=== PATIENT | male | born 1965 | race Caucasian/White ===

== ENCOUNTER 2023-04-05 03:54 | Inpatient (IN) ==
[2023-04-05] MEDS ORDERED: VANCOMYCIN HCL 1,500 MG in SODIUM CHLORIDE 0.9% 500 ML IV STA (04:16)
[2023-04-05] MEDS ORDERED: cefTRIAXone SODIUM 2,000 MG/50 ML BAG IV STA (04:16)
[2023-04-05] MEDS ORDERED: VANCOMYCIN CONSULT ACTIVE PRN ×2 (04:16→09:26)
--- NOTE | 2023-04-05 04:21 | Emergency Department Note ---
History of Present Illness General Chief complaint: Finger Pain Stated complaint: FINGER PAIN Time Seen by Provider: 04/05/23 04:09 History of Present Illness This 58-year-old gentleman who states he is healthy presents to the ER for left hand infection. He states 2 weeks ago he hit his finger cutting wood. Patient was at [facility] and was told to come to a bigger hospital for further evaluation and treatment. Patient occasionally smokes meth. No other drug use. No tobacco use. He states he is healthy with no active medical problems. He complains of pain and swelling to the left second finger and hand. The fingernail fell off the other day. Patient denies fever, chills, severe pain. Patient states he actually cannot really feel the finger much. Past Med/Surg History Social History Smoking Status: Current every day smoker Preferred Language: [place] Feels Safe at Home: Yes Review of Systems A total of 10 systems reviewed and were otherwise negative Physical Exam Vital Signs Vital Signs - 24 hr 04/05/23 03:58 04/05/23 05:30 Temperature 36.3 C L Temperature Source Temporal Artery Scan Pulse Rate 80 Pulse Rate [Finger] 64 Respiratory Rate 18 18 Respiratory Effort / Characteristics Non-Labored Respiratory Depth Normal Blood Pressure 116/47 L Blood Pressure [Right Arm] 120/77 Blood Pressure Mean 70 Blood Pressure Mean [Right Arm] 91 Pulse Oximetry 100 97 Oxygen Delivery Method Room Air Room Air Sepsis Recent Fever Within 48 Hours No Sepsis New/Unexplained Change in Mental Status No Sepsis Action Taken by Nursing No Action Required VITALS: Vitals are noted on the nurse's note and reviewed by myself. Vital signs stable. GENERAL: White male, in no acute distress, nondiaphoretic, well-developed well- nourished. SKIN: Left hand erythematous and edematous, left second finger with fingernail avulsed erythematous and edematous malodorous with purulent drainage from the fingertip, patient cannot bend the finger completely. I probed the wound and I easily probed to the bone and deeper in and the patient could not feel this. A wound culture was obtained. The rest of the skin was without rashes, erythema, edema, or bruising. There is no tenting of the skin. Capillary reflex less than 2 seconds. HEAD: Normocephalic atraumatic. EARS: External auditory canals clear, EYES: Pupils equal round and reactive to light and accommodation. Conjunctivae without injection, sclerae without icterus. Extraocular movements intact. NOSE: Patent, turbinates without inflammation or discharge. MOUTH: Mucous membranes moist. Pharynx without erythema or exudate. Uvula midline. Airway patent. Tongue does not deviate. NECK: Supple without nuchal rigidity. No lymphadenopathy. No thyromegaly. Cervical spine is nontender. No JVD. HEART: Regular rate and rhythm LUNGS: Clear to auscultation bilaterally without wheezes, rales or rhonchi. No retractions or accessory muscle use. ABDOMEN: Positive bowel sounds x 4. Normal tympanic percussion. Soft, nontender, without masses or organomegaly. Brown sign negative. No guarding or rebound tenderness. No CVA tenderness MUSCULOSKELETAL: No muscle atrophy, erythema, or edema noted. NEURO: Patient was alert and oriented to person place and time. Normal sensation to light and sharp touch. No focal neurological deficits. Course Administered Medications Vancomycin HCl 1,500 mg/ (Sodium Chloride) 530 mls @ 200 mls/hr IV NOW STA Stop: 04/05/23 06:54 Last Admin: 04/05/23 04:59 Dose: 200 mls/hr Documented By: LAUREN Discontinued Medications Sodium Chloride (Nss) 1,000 mls @ 999 mls/hr IV .Q1H1M PARK Stop: 04/05/23 05:30 Last Infusion: 04/05/23 05:46 Dose: Infused Documented By: Admin: 04/05/23 04:40 Dose: 999 mls/hr Documented By: Ceftriaxone Sodium (Rocephin) 2,000 mg in 50 mls @ 100 mls/hr IV NOW STA Stop: 04/05/23 04:45 Last Infusion: 04/05/23 05:46 Dose: Infused Documented By: Admin: 04/05/23 04:40 Dose: 100 mls/hr Documented By: Famotidine (Pepcid 20mg Iv Push) 20 mg in 5 mls @ 2.5 mls/min IV NOW STA Stop: 04/05/23 04:53 Last Admin: 04/05/23 04:59 Dose: 2.5 mls/min Documented By: Medical Decision Making Medical Records Attestation: I reviewed the patient's medical records. Home Medications Current Medication List: was personally reviewed by me Laboratory Data Attestation: I reviewed the patient's lab results. 04/05/23 05:19 04/05/23 04:25 Lab Results 04/05/23 04/05/23 04/05/23 Range/Units 04:25 04:32 05:19 WBC 7.80 (4.8-10.8) K/ul RBC 3.72 L (4.70-6.10) M/uL Hgb 11.2 L (14.0-18.0) g/dl Hct 33.7 L (42.0-52.0) % MCV 90.6 (80.0-100.0) fL MCH 30.1 (25.0-34.0) pg MCHC 33.2 (32.0-36.0) g/dL RDW Std Deviation 44.6 (36.4-46.3) fL RDW Coeff of Isabel 13.2 (11.5-14.5) % Plt Count 298 (130-400) K/uL MPV 8.9 L (9.4-12.4) fL Immature Gran % (Auto) 0.3 % Neut % (Auto) 77.1 % Lymph % (Auto) 13.3 % [place] % (Auto) 8.3 % Eos % (Auto) 0.6 % Baso % (Auto) 0.4 % Neut # (Auto) 6.01 (1.40-6.50) K/uL Lymph # (Auto) 1.04 L (1.20-3.40) K/uL [place] # (Auto) 0.65 H (0.11-0.59) K/uL Eos # (Auto) 0.05 (0.00-0.50) K/uL Baso # (Auto) 0.03 (0.00-0.20) K/uL Immature Gran # (Auto) 0.02 (0.01-0.20) K/uL ESR 47 H (0-20) mm/hr Sodium 139 (136-145) mmol/L Potassium 3.6 (3.5-5.1) mmol/L Chloride 107 (98-107) mmol/L Carbon Dioxide 25 (21-32) mmol/L Anion Gap 7 (3-11) BUN 14 (6-23) mg/dl Creatinine 0.91 (0.6-1.4) mg/dl Est Cr Clr Drug Dosing 81.7 ml/min Est GFR ( Amer) 106.5 ml/min Est GFR (Non-Af Amer) 91.9 ml/min BUN/Creatinine Ratio 15.4 (10-20) Glucose 120 H (70-99(Fasting)) mg/dl Lactate 1.7 (0.4-2.0) mmol/L Calcium 8.6 (8.6-10.3) mg/dl Magnesium 2.0 (1.7-2.4) mg/dl Total Bilirubin 0.4 (0.2-1.0) mg/dl Direct Bilirubin 0.1 (0-0.2) mg/dl AST 17 (13-39) U/L ALT 18 (7-52) U/L Alkaline Phosphatase 92 (34-104) U/L Total Creatine Kinase 126 (30-223) U/L Troponin I High Sens 5.2 (0-20) pg/ml C-Reactive Protein 9.01 H (0-0.5) mg/dl Total Protein 7.1 (6.0-8.3) gm/dl Albumin 3.3 L (3.4-5.0) gm/dl Procalcitonin < 0.05 (0-0.5) ng/ml Imaging Data Attestation: I personally reviewed and interpreted this imaging study as follows: MDM Narrative Prior records reviewed and summarized as above. Triage Nursing notes reviewed. Additional history obtained from nursing. The patient's history was concerning for swelling and redness of the skin. Differential diagnosis: Etiologies such as osteomyelitis, NF, cellulitis, abscess, MRSA infection, DVT, necrotizing fasciitis, dermatitis, drug eruption, as well as others were entertained.. Physical examination: The physical examination was consistent with concerns of osteomyelitis to the left second finger ER treatment provided: Rocephin, vancomycin, IV fluids were ordered Tetanus was given at [facility] before coming here Wound culture was taken and sent to lab by myself On reassessment the patient felt better. Diagnostics interpreted by me: EKG ordered for heartburn EKG: Normal sinus, normal intervals, no acute ST-T wave changes. Impression normal sinus rhythm independently interpreted by myself I think arrhythmia is unlikely. EKG shows normal sinus rhythm with no interval abnormalities such as QT prolongation or WPW. There are no findings to suggest Brugada syndrome. Cardiac monitoring in the emergency department reveals no tachycardic or bradycardic dysrhythmia. Hypertrophic cardiomyopathy was considered but there are no clear historical elements pointing toward this. EKG is not suggestive. The QRS voltage is not extremely large and there are no suggestive Q waves. The labs Independently Interpreted by myself revealed elevated inflammatory markers, negative lactic. Mild hyperglycemia without DKA Blood cultures pending, wound culture pending Imaging studies: Hand x-ray with soft tissue swelling with concerns of osteomyelitis and possible fracture to the third finger per my independent interpretation Consultation: A consultation was placed with the hospitalist. The case was discussed and diagnostics were reviewed. The patient was evaluated in the ER for further treatment. Exam and history are concerning for possible osteomyelitis of the left second finger. Patient also had concerns for tendon infection of the finger as he cannot bend the finger. It was quite erythematous and edematous with purulent drainage from the finger and malodorous. Patient could not feel me probed the wound. He was started on broad-spectrum antibiotics as above. He was given a tetanus shot. Medicine consulted the case is discussed. He will be admitted to the medical service for further evaluation and treatment. By the evaluation outlined above emergent etiologies such as abscess, DVT, as well as others were deemed relatively unlikely. The pt informed about the findings as listed above. All questions were answered and pleased with the treatment. The chart was completed utilizing The [employer] Speech voice recognition software. Grammatical errors, random word insertions, pronoun errors, and incomplete sentences are an occassional consequence of this system due to software limitations, ambient noise, and hardware issues. Any formal questions or concerns about the content, text, or information contained within the body of this dictation should be directly addressed to the physician foundation assistant for clarification. Impression & Plan Finger osteomyelitis, left Discharge Plan Visit Data Chief Complaint: Finger Pain Stated Complaint: FINGER PAIN ED Provider: [facility] Midlevel Provider: Kristal Palmoo Discharge Problem: Finger osteomyelitis, left Patient Disposition: Admitted As Inpatient Condition: Good Forms Stand Alone Forms: [facility] [email or web address] Referrals Referrals: PCP,NO [Primary Care Provider] -
[2023-04-05] MEDS ORDERED: SODIUM CHLORIDE 0.9% 1,000 ML IV SCH (04:30)
[2023-04-05] MEDS ORDERED: FAMOTIDINE 20MG IV PUSH 20 MG/5 ML SYR IV STA (04:52)
[2023-04-05 05:34] LABS: Basophils # (auto) 0.03 K/uL (0.00-0.20); Basophils % (auto) 0.4 %; Eosinophils # (auto) 0.05 K/uL (0.00-0.50); Eosinophils % (auto) 0.6 %; Hematocrit (blood only) 33.7 % (42.0-52.0); Hemoglobin 11.2 g/dl (14.0-18.0); Immature Granulocytes # (auto) 0.02 K/uL (0.01-0.20); Immature Granulocytes % (auto) 0.3 %; Lymphocytes # (auto) 1.04 K/uL (1.20-3.40); Lymphocytes % (auto) 13.3 %; Mean Corpuscular Hemoglobin 30.1 pg (25.0-34.0); Mean Corpuscular Hgb Conc 33.2 g/dL (32.0-36.0); Mean Corpuscular Volume 90.6 fL (80.0-100.0); Mean Platelet Volume 8.9 fL (9.4-12.4); Monocytes # (auto) 0.65 K/uL (0.11-0.59); Monocytes % (auto) 8.3 %; Neutrophils # (auto) 6.01 K/uL (1.40-6.50); Neutrophils % (auto) 77.1 %; Platelet Count 298 K/uL (130-400); RDW Coefficient of Variation 13.2 % (11.5-14.5); RDW Standard Deviation 44.6 fL (36.4-46.3); Red Blood Count 3.72 M/uL (4.70-6.10)
[2023-04-05 05:43] LABS: Albumin Level 3.3 gm/dl (3.4-5.0); BUN Creatinine Ratio 15.4 (10-20); Bilirubin Direct 0.1 mg/dl (0-0.2); Bilirubin,Total 0.4 mg/dl (0.2-1.0); C Reactive Protein 9.01 mg/dl (0-0.5); Calcium 8.6 mg/dl (8.6-10.3); Creatinine Clr Calc Pharmacy 81.7 ml/min; Est GFR (African American) 106.5 ml/min; Est GFR (Non-African American) 91.9 ml/min; Potassium 3.6 mmol/L (3.5-5.1); Total Protein 7.1 gm/dl (6.0-8.3)
[2023-04-05 05:48] LABS: Troponin I High Sensitivity 5.2 pg/ml (0-20)
--- NOTE | 2023-04-05 06:12 | History & Physical Report ---
Date of Service April 05, 2023 Assessment & Plan (1) Finger osteomyelitis, left: Plan: 58yo male s/p injury of left index finger 2 weeks ago with progressive swelling and purulent drainage. Likely osteomyelitis. Elevated ESR=47, CRP=9.01. Afebrile, HD stable. Does not appear to be systemically ill -Admit to medical -Follow wound culture -Continue antibiotic coverage with Vancomycin and Ceftriaxone -Ortho consultation appreciated -Check HgbA1C -Will keep patient NPO for now in event of possible surgical procedure. Last PO intake 04/05/23 at 02:00 (2) Indigestion: Plan: Patient reports indigestion -Pepcid 40mg po daily -Maalox PRN History of Present Illness Chief Complaint: left finger osteomyelitis Primary Care Provider: NO PCP Juventino Faust is a 58yo male presenting with infection of left index finger. Patient was splitting wood 2 weeks ago and smashed his finger when he was loading up the wood onto a truck. He also got some small thorns in his hand as well. After the initial injury, his nail turned black and fell off. He has had progressive redness, swelling and pain of the left index finger and hand over the last two weeks. Three days ago patient opened the swelling with a razor blade and reported a copious amount of pus that came out. He was seen at [place] [facility] and administered a tetanus shot and instructed to come to [facility]. He denies chest pain, cough, SOB. He reports a low grade subjective fever last night. Also with indigestion tonight. Otherwise, no complaints. In the ER he is afebrile, HD stable. Wound was explored by an ER staff with a sterile q-tip. Probed to exposed bone. Copious amounts of pus expressed and sent for culture. ER Course: Famotidine Vancomycin Ceftriaxone NSS Allergies Allergy/AdvReac Type Severity Reaction Status Date / Time No Known Drug Allergies Allergy Mild Verified 04/05/23 06:30 Past Med/Surg History Medical History (Updated 04/05/23 @ 06:35 by Miryam Bosch DO) No significant past medical history Surgical History (Updated 04/05/23 @ 06:31 by Miryam Bosch DO) History of hand surgery Family History (Updated 04/05/23 @ 06:31 by Miryam Bosch DO) Other Family history non-contributory Social History Smoking Status: Current every day smoker Preferred Language: Luxembourgish Feels Safe at Home: Yes Review of Systems Review of Systems: General: Patient denies fevers, chills, malaise, weight loss or weight gain Skin: Patient denies bruising, bleeding or rash HEENT: Patient denies headache, visual changes, sore throat, difficulty swallowing, stiff neck Cardio: Patient denies chest pain, palpitations, shortness of breath, lightheadedness Pulmonary: Patient denies cough, wheeze GI: Patient denies abdominal pain, nausea, vomiting, diarrhea, constipation : Patient denies dysuria, frequency, urgency or hematuria Musculoskeletal: Patient denies swelling or pain of the joints, edema Neuro: Patient denies numbness, tingling, weakness or falls Psych: Patient denies depression, anxiety Physical Exam Physical Exam: General: patient resting comfortably, NAD, non-toxic in appearance, AA&O x 4 HEENT: NC/AT, PERRL, EOMI, anicteric sclera, conjunctiva without injection, external ear normal to inspection and nontender, nares patent, moist mucus membranes, poor dentition, no oropharyngeal lesions, neck supple, trachea midline, no LAD, no thyromegaly, no JVD Heart: +S1/S2, regular, no m/r/g Lungs: equal air entry bilaterally, no rales/rhonchi/wheezes Abd: +BS, soft, NT/ND, no masses/organomegaly/ascites, some epigastric tenderness Ext: arthritic changes in bilateral hands. Left hand index finger with necroti c tip, appears to have exposed bone, purulent drainage, redness of finger, swelling of hand. Left middle finger s/p surgical reattachment held in partial flexion with skin cracking at PIP skin, small lesions on left hand reportedly from thorns Neuro: nonfocal, patient AA&O x 4, speech intact, no facial droop, moving all extremities on command with equal strength 5/5 Results & Data Results & Data Vital Signs (Past 12 Hours) Vital Signs Temp Pulse Pulse Resp BP BP Pulse Ox 04/05/23 05:30 64 18 120/77 97 04/05/23 03:58 36.3 C L 80 18 116/47 L 100 O2 Del Method 04/05/23 05:30 Room Air 04/05/23 03:58 Room Air Laboratory Results Laboratory Results WBC 7.80 K/ul (4.8-10.8) 04/05/23 05:19 RBC 3.72 M/uL (4.70-6.10) L 04/05/23 05:19 Hgb 11.2 g/dl (14.0-18.0) L 04/05/23 05:19 Hct 33.7 % (42.0-52.0) L 04/05/23 05:19 MCV 90.6 fL (80.0-100.0) 04/05/23 05:19 MCH 30.1 pg (25.0-34.0) 04/05/23 05:19 MCHC 33.2 g/dL (32.0-36.0) 04/05/23 05:19 RDW Std Deviation 44.6 fL (36.4-46.3) 04/05/23 05:19 RDW Coeff of Isabel 13.2 % (11.5-14.5) 04/05/23 05:19 Plt Count 298 K/uL (130-400) 04/05/23 05:19 MPV 8.9 fL (9.4-12.4) L 04/05/23 05:19 Immature Gran % (Auto) 0.3 % 04/05/23 05:19 Neut % (Auto) 77.1 % 04/05/23 05:19 Lymph % (Auto) 13.3 % 04/05/23 05:19 [place] % (Auto) 8.3 % 04/05/23 05:19 Eos % (Auto) 0.6 % 04/05/23 05:19 Baso % (Auto) 0.4 % 04/05/23 05:19 Neut # (Auto) 6.01 K/uL (1.40-6.50) 04/05/23 05:19 Lymph # (Auto) 1.04 K/uL (1.20-3.40) L 04/05/23 05:19 [place] # (Auto) 0.65 K/uL (0.11-0.59) H 04/05/23 05:19 Eos # (Auto) 0.05 K/uL (0.00-0.50) 04/05/23 05:19 Baso # (Auto) 0.03 K/uL (0.00-0.20) 04/05/23 05:19 Immature Gran # (Auto) 0.02 K/uL (0.01-0.20) 04/05/23 05:19 ESR 47 mm/hr (0-20) H 04/05/23 05:19 Sodium 139 mmol/L (136-145) 04/05/23 04:25 Potassium 3.6 mmol/L (3.5-5.1) 04/05/23 04:25 Chloride 107 mmol/L (98-107) 04/05/23 04:25 Carbon Dioxide 25 mmol/L (21-32) 04/05/23 04:25 Anion Gap 7 (3-11) 04/05/23 04:25 BUN 14 mg/dl (6-23) 04/05/23 04:25 Creatinine 0.91 mg/dl (0.6-1.4) 04/05/23 04:25 Est Cr Clr Drug Dosing 81.7 ml/min 04/05/23 04:25 Est GFR ( Amer) 106.5 ml/min 04/05/23 04:25 Est GFR (Non-Af Amer) 91.9 ml/min 04/05/23 04:25 BUN/Creatinine Ratio 15.4 (10-20) 04/05/23 04:25 Glucose 120 mg/dl (70-99(Fasting)) H 04/05/23 04:25 Lactate 1.7 mmol/L (0.4-2.0) 04/05/23 04:32 Calcium 8.6 mg/dl (8.6-10.3) 04/05/23 04:25 Magnesium 2.0 mg/dl (1.7-2.4) 04/05/23 04:25 Total Bilirubin 0.4 mg/dl (0.2-1.0) 04/05/23 04:25 Direct Bilirubin 0.1 mg/dl (0-0.2) 04/05/23 04:25 AST 17 U/L (13-39) 04/05/23 04:25 ALT 18 U/L (7-52) 04/05/23 04:25 Alkaline Phosphatase 92 U/L (34-104) 04/05/23 04:25 Total Creatine Kinase 126 U/L (30-223) 04/05/23 04:25 Troponin I High Sens 5.2 pg/ml (0-20) 04/05/23 04:25 C-Reactive Protein 9.01 mg/dl (0-0.5) H 04/05/23 04:25 Total Protein 7.1 gm/dl (6.0-8.3) 04/05/23 04:25 Albumin 3.3 gm/dl (3.4-5.0) L 04/05/23 04:25 Procalcitonin < 0.05 ng/ml (0-0.5) 04/05/23 04:25 PG Care Time/CCT Total # of Minutes Spent Total Time Spent with Patient: Total time spent is greater than 50% in coordination of care (as documented) at patient's floor/unit and/or counseling patient: Coding Level of Care Code 68181 INT INP/OBS CARE 2/55MIN Diagnoses Finger osteomyelitis, left M86.9 Indigestion K30
[2023-04-05] MEDS ORDERED: ONDANSETRON INJ 2 MG/ML 2 ML VIAL IV PRN ×2 (09:26→11:56)
[2023-04-05] MEDS ORDERED: ALUMINUM/MAGNESIUM SUSP 30 ML UDC PO PRN (09:26)
--- NOTE | 2023-04-05 09:26 | XRay Report ---
XR hand LT min 3V routine CLINICAL HISTORY: ? OM left 2nd finger TECHNIQUE: 3 views of the left hand were obtained. Comparison: None available at the time of this dictation. FINDINGS: There are mild erosions at the tuft of the left second digit distal phalanx. Degenerative changes are seen in the joints. Soft tissue swelling and ulceration noted. IMPRESSION: Findings are compatible with osteomyelitis of the second digit distal phalanx tuft with soft tissue s welling and ulcer formation. ACT 112: Negative or not required by law. Electronically signed by: Carlos Snow M.D. 04/05/2023 9:24 AM
[2023-04-05 10:42] LABS: Estimated Average Glucose 126 mg/dl
--- NOTE | 2023-04-05 10:43 | Anesthesiology Consultation ---
Date of Service April 05, 2023 Assessment & Plan Chart Review Chart Review: Acceptable Risk for Surgery and Patient NOT seen in Pre Admission Testing Consults Requested none ASA [id number] Proposed Anesthesia Anesthesia Type: MAC History Height/Weight Height: 5 ft 7 in Weight: 73.2 kg Allergies Allergy/AdvReac Type Severity Reaction Status Date / Time No Known Drug Allergies Allergy Mild Verified 04/05/23 06:30 Medications Home Medications Medication Instructions Recorded Confirmed Last Taken No Known Home Medications 04/05/23 04/05/23 Unknown Past Medical History Medical History No significant past medical history Hx/o methamphetamine use/smoking + cigarette smoking anemia Exercise / Class Metabolic Activity II 4-5 Yardwork/Stairs/Walk up hill Past Family History Family History Other Family history non-contributory Past Surgical History Surgical History History of hand surgery Past Anesthesia History No Hx of Anesthesia Complications and No Family Hx of Anesthesia Complications History of PONV No Hx of PONV and No Hx of Motion Sickness Social History Smoking Status: Current every day smoker Do You Dip or Chew Tobacco: Yes (one cane per week) Hx Alcohol Use: No Alcohol Intake Frequency Comment: per patient quit 2 1/2 years ago Hx Substance Use: Yes substance use type: methamphetamine Last Used Substance: Just Prior to Arrival Last Used Substance Other:: last use last night 04/04/23- uses x1 month Physical Exam Vital Signs Last Vital Signs Temp 36.5 C 04/05/23 09:31 Pulse 63 04/05/23 09:31 Resp 16 04/05/23 09:31 BP 134/92 04/05/23 09:31 Pulse Ox 98 04/05/23 09:31 O2 Del Method Room Air 04/05/23 09:31 Testing Laboratory Results 04/05/23 05:19 04/05/23 04:25 04/05/23 04:20 Gram Stain - Final Finger Electrocardiogram Date: 04/05/23 Findings: + NSR @ (SR @ 63 w/ PAC's)
--- NOTE | 2023-04-05 10:53 | Orthopedic Consultation ---
Date of Consultation April 05, 2023 Assessment & Plan (1) Finger osteomyelitis, left: Plan I discussed treatment options with the patient. I feel the finger is not likely salvageable and he has infection which is beginning to track up the extremity. We discussed surgical treatment options. He like to proceed with: 1 left index finger amputation, likely at middle phalanx level 2 irrigation debridement He understands loss of function, failure to improve, persistent infection, stiffness etc. Risk and benefits have been discussed as well as alternative treatment options. We will plan for surgical treatment under digital block and sedation today. History of Present Illness Reason for Consultation: left index finger infection Attending Physician: Miryam Bosch DO History of Present Illness this is a gentleman who sustained a crushing injury to his finger about 2 weeks ago he notes progressive pain and swelling in the finger with subsequent infection. He is admitted last night to the hospitalist service with concern for finger infection and osteomyelitis. Allergies Allergy/AdvReac Type Severity Reaction Status Date / Time No Known Drug Allergies Allergy Mild Verified 04/05/23 06:30 Home Medications Medication Instructions Recorded Confirmed Type No Known Home Medications 04/05/23 04/05/23 History Patient History Medical History No significant past medical history Surgical History History of hand surgery Family History Other Family history non-contributory Social History Smoking Status: Current every day smoker Tobacco Type: Smokeless Tobacco (Dip or Chew) Do You Dip or Chew Tobacco: Yes (one cane per week); Hx Alcohol Use: No Hx Substance Use: Yes Last Used Substance: Just Prior to Arrival Last Used Substance Other:: last use last night 04/04/23- uses x1 month Preferred Language: British Communication Ability: Effective Pot Operator Required: No Beliefs That Will Affect Care: None Current Living Situation: Alone Feels Safe at Home: Yes Safety Concerns: Feels Safe At This Time Assistive Devices: Glasses Assistive Devices Comment: reading glasses Physical Exam Musculoskeletal: Left index finger examination does show significant fusiform swelling of the finger. He has evidence of exposed bone of the tip of the finger with loss of soft tissues. He has redness in the finger up to the level of the PIP joint. No streaking erythema. Results & Data Vital Signs (Past 12 Hours) Vital Signs Temp Pulse Pulse Resp BP BP Pulse Ox 04/05/23 09:31 36.5 C 63 16 134/92 98 04/05/23 07:00 65 18 134/89 98 04/05/23 05:30 64 18 120/77 97 04/05/23 03:58 36.3 C L 80 18 116/47 L 100 O2 Del Method 04/05/23 09:31 Room Air 04/05/23 07:00 Room Air 04/05/23 05:30 Room Air 04/05/23 03:58 Room Air Diagnostic Findings I independently reviewed 3 views of the left index finger does show osteomyelitis of the tip of the finger with a dysmorphic looking distal phalanx and erosions at the tip
[2023-04-05] MEDS: FAMOTIDINE 40 MG TABLET PO SCH (10:54)
--- NOTE | 2023-04-05 11:20 | Pharmacy Report ---
Pharmacy PK ABX Note - Date of Service April 05, 2023 - Assessment and Plan Assessment 58 year old M receiving vancomycin and ceftriaxone for treatment of left finger osteomyelitis. Blood cultures pending, surface finger culture pending. Renal function stable. Plan for OR today. Day # 1 of antimicrobial therapy. Plan Vancomycin * Loading dose: 1500 mg IV x 1 * Maintenance dose: 1000 mg IV every 12 hours * Regimen is predicted to achieve target AUC/GILLES of 400-600 mg/L.hr * Will obtain level around steady state if vancomycin continued. Pharmacy will continue to follow and will adjust dose/frequency as necessary. Thank you. Pharmacy has transitioned to AUC monitoring for vancomycin. AUC/GILLES is the preferred PK/PD target and is associated with decreased risk of nephrotoxicity compared to traditional trough targets.
[2023-04-05] MEDS ORDERED: MIDAZOLAM HCL 1 MG/ML 2ML VIAL ONE (11:37)
[2023-04-05] MEDS ORDERED: PROPOFOL IV EMULSION 10 MG/ML 20 ML VIAL IV ONE (11:37)
[2023-04-05] MEDS ORDERED: LIDOCAINE 2% 2 ML VIAL/AMP(20MG/ML) INFIL ONE (11:37)
[2023-04-05] MEDS ORDERED: fentaNYL citrate PF 100 MCG/2 ML VIAL ONE (11:37)
[2023-04-05] MEDS ORDERED: LIDOCAINE 1% LOCAL 20 ML VIAL ONE (11:55)
[2023-04-05] MEDS ORDERED: BUPIVACAINE 0.5 % 5 MG/1 ML MPF 30ML VIAL ONE (11:55)
[2023-04-05] MEDS ORDERED: NALOXONE HCL 0.4 MG/1 ML VIAL/CARP IV PRN (11:56)
[2023-04-05] MEDS ORDERED: PROMETHAZINE HCL 12.5 MG in SODIUM CHLORIDE 0.9% 50 ML IV PRN (11:56)
[2023-04-05] MEDS ORDERED: HYDROmorphone INJ 1 MG/ML SYRINGE IV PRN (11:56)
[2023-04-05] MEDS ORDERED: fentaNYL citrate PF 100 MCG/2 ML VIAL IV PRN (11:56)
[2023-04-05] MEDS ORDERED: ATROPINE SULFATE 0.1 MG/ML 10ML SYR IV PRN (11:56)
[2023-04-05] MEDS ORDERED: ePHEDrine sulfate 50 MG/ML AMP IV PRN (11:56)
[2023-04-05] MEDS ORDERED: LABETALOL HCL IV 5 MG/ML 20ML IV PRN (11:56)
[2023-04-05] MEDS ORDERED: FLUMAZENIL 0.1 MG/1 ML 10 ML VIAL IV PRN (11:56)
--- NOTE | 2023-04-05 11:56 | Communication Note ---
Date of Service: April 05, 2023 Patient smoked methamphetamine @ 0100am today
[2023-04-05] MEDS ORDERED: ceFAZolin 330 MG/ML 1 GM VIAL ONE ×2 (12:27)
[2023-04-05] MEDS ORDERED: ceFAZolin 2000MG 2,000 MG/15 ML SYR IV ONE (12:29)
[2023-04-05 12:40] LABS: Amphetamines+Metham, Urine Pos (Neg); Barbiturates, Urine Neg (Neg); Benzodiazepine, Urine Neg (Neg); Cocaine, Urine Neg (Neg); MDMA (Ecstacy), Urine Pos (Neg); Methadone, Urine Neg (Neg); Opiate, Urine Neg (Neg); Phencyclidine, Urine Neg (Neg)
--- NOTE | 2023-04-05 12:40 | Post Operative Brief Note ---
Immediate Post Op Note v1 Date of Surgery April 05, 2023 Pre & Post Diagnosis Operation Date: 04/05/23 11:30 Pre-Op Diagnosis: Left Index Finger Osteomyelitis Post-Op Diagnosis: Left Index Finger Osteomyelitis I identified the patient and participated in the time-out.: Yes Procedure Operation Date: 04/05/23 11:30 Actual Procedures p Left Index Finger Amputation(Left) - Trav Rivera MD Left index finger I&D Surgeon Trav Rivera MD Theatre Instructor None Estimated Blood Loss 10 Findings Consistent with Post-Op Diagnosis Gross infection and osteomyelitis
[2023-04-05] MEDS ORDERED: ONDANSETRON INJ 2 MG/ML 2 ML VIAL ONE (12:41)
--- NOTE | 2023-04-05 12:49 | Operative Report ---
Post Operative Report Pre & Post Diagnosis Operation Date: 04/05/23 11:30 Pre-Op Diagnosis: Left Index Finger Osteomyelitis Post-Op Diagnosis: Left Index Finger Osteomyelitis I identified the patient and participated in the time-out.: Yes Procedure Operation Date: 04/05/23 11:30 Actual Procedures p Left Index Finger Amputation(Left) - Trav Rivera MD Left index finger irrigation and debridement of infection Surgeon Trav Rivera MD Display Department Manager None Estimated Blood Loss 10 Findings Consistent with Post-Op Diagnosis Gross osteomyelitis of the tip of the finger and infection extending proximally to the level of the PIP joint. Specimens Cultures Anesthesia Type MAC Indications This is a gentleman with progressive infection of the tip of the finger he presents with loss of sensation as well which is concerning either for unrecognized diabetes or unrecognized carpal tunnel syndrome. He presents for amputation with irrigation and debridement. Description of Procedure I injected mixture of lidocaine and Marcaine at the base of the finger for a digital block. Hand was prepped and draped in the standard fashion I made an elliptical fishmouth incision over the region of the middle phalanx. Dissection was carried down through the skin and subcutaneous tissue. There is gross infection and the tip of the finger was not viable with gross osteomyelitis. I disarticulated the finger at the PIP joint as I did not feel that it was viable distal to that. There was infection tracking up the flexor tendon sheath. I transected the flexor tendons proximally at the limited visualization. I then performed traction neurectomies. I debrided the area of skin subcutaneous tissue fascia and bone and the area was copiously irrigated with 1 L of normal saline for infection. This did leave the residual stump fairly clean. Finger tourniquet was removed and hemostasis was obtained with bipolar electrocautery. Skin was loosely closed with 3-0 nylon in a simple fashion. Patient was placed in a soft dressing and sent to the PACU in stable condition postoperative plan will be continue antibiotics as per hospitalist and monitor culture results. I attest to the content of the Intraoperative Record and any orders documented therein. Any exceptions are noted below.
--- NOTE | 2023-04-05 13:31 | Anesthesiology Progress Note ---
Date of Service April 05, 2023 Anesthesia Post Procedure Vital Signs Vital Signs: Temp Pulse Pulse Pulse Resp BP BP 04/05/23 13:05 56 L 12 103/74 04/05/23 12:55 55 L 14 117/77 04/05/23 12:45 36.5 C 59 L 17 104/74 04/05/23 09:31 36.5 C 63 16 134/92 04/05/23 07:00 65 18 134/89 04/05/23 05:30 64 18 120/77 04/05/23 03:58 36.3 C L 80 18 116/47 L Pulse Ox O2 Del Method O2 Flow Rate 04/05/23 13:05 100 Oxymask 2 04/05/23 12:55 100 Oxymask 4 04/05/23 12:45 100 Oxymask 6 04/05/23 09:31 98 Room Air 04/05/23 07:00 98 Room Air 04/05/23 05:30 97 Room Air 04/05/23 03:58 100 Room Air Transfer of Care Handoff Completed per policy Notes Mental Status: alert / awake / arousable Patient Amnestic to Procedure: Yes Nausea / Vomiting: adequately controlled Pain: adequately controlled Airway Patency, RR, SpO2: stable & adequate BP & HR: stable & adequate Hydration State: stable & adequate Anesthetic Complications: no major complications apparent
[2023-04-05] MEDS: VANCOMYCIN HCL 1,000 MG in SODIUM CHLORIDE 0.9% 250 ML IV SCH (14:19)
[2023-04-05] MEDS ORDERED: VANCOMYCIN HCL 1,000 MG in SODIUM CHLORIDE 0.9% 250 ML IV SCH (16:00)
[2023-04-05] MEDS ORDERED: oxyCODONE HCL IR 5 MG TAB (IMMEDIATE RELEASE) PO PRN (18:08)
[2023-04-05] MEDS: ACETAMINOPHEN 325 MG TAB PO SCH (20:37)
[2023-04-06] MEDS: VANCOMYCIN HCL 1,000 MG in SODIUM CHLORIDE 0.9% 250 ML IV SCH ×2 (01:38→13:49)
[2023-04-06] MEDS: cefTRIAXone SODIUM 2,000 MG in DEXTROSE 5 % MINI-B 50 ML IV SCH (05:10)
[2023-04-06 06:22] LABS: Hematocrit (blood only) 37.8 % (42.0-52.0); Hemoglobin 12.8 g/dl (14.0-18.0); Mean Corpuscular Hemoglobin 30.3 pg (25.0-34.0); Mean Corpuscular Hgb Conc 33.9 g/dL (32.0-36.0); Mean Corpuscular Volume 89.6 fL (80.0-100.0); Mean Platelet Volume 8.9 fL (9.4-12.4); Platelet Count 325 K/uL (130-400); RDW Coefficient of Variation 13.1 % (11.5-14.5); RDW Standard Deviation 42.9 fL (36.4-46.3); Red Blood Count 4.22 M/uL (4.70-6.10); White Blood Count 6.09 K/ul (4.8-10.8)
[2023-04-06 06:57] LABS: Calcium 8.4 mg/dl (8.6-10.3); Creatinine Clr Calc Pharmacy 90.7 ml/min; Est GFR (African American) 112.2 ml/min; Est GFR (Non-African American) 96.8 ml/min; Potassium 3.9 mmol/L (3.5-5.1)
[2023-04-06] MEDS: FAMOTIDINE 40 MG TABLET PO SCH (08:28)
[2023-04-06] MEDS: DOCUSATE SODIUM/SENNA 50/8.6MG TAB PO SCH (08:28)
[2023-04-06] MEDS: ACETAMINOPHEN 325 MG TAB PO SCH ×4 (08:28→20:33)
--- NOTE | 2023-04-06 09:04 | Orthopedic Progress Note ---
Date of Service April 06, 2023 Assessment & Plan (1) Finger osteomyelitis, left: Plan: Postop day 1 left index finger I&D and amputation At this point in time he does exhibit clinical improvement. I do not anticipate any further surgical intervention. Recommend antibiotics as per hospitalist. Cultures were taken yesterday which do show gram-positive cocci and gram- negative bacilli. Orthopedics will sign off. Should follow-up with my physician intellectual property legal assistant, Adri Marlow or Luis Simons 10 to 14 days from surgical treatment at [facility] office. May continue dry sterile dressing changes once a day Admission and Anticipated Discharge Date Admission Date: April 05, 2023 Subjective Patient is feeling well, no new complaints Physical Exam Musculoskeletal: Left index finger exam: He has well-healing incision. He has mild swelling and erythema around the incision. Infection looks clinically improving Results & Data Vital Signs (Past 12 Hours) Vital Signs Temp Pulse Resp BP Pulse Ox O2 Del Method 04/06/23 07:41 36.4 C L 63 18 132/90 98 Room Air 04/06/23 03:22 36.7 C 63 16 120/75 97 Room Air 04/05/23 23:00 36.9 C 61 18 111/64 97 Room Air
--- NOTE | 2023-04-06 16:31 | Hospitalist Progress Note ---
Date of Service April 06, 2023 Assessment & Plan (1) Finger osteomyelitis, left: Plan: 58yo male s/p injury of left index finger 2 weeks ago with progressive swelling and purulent drainage. With osteomyelitis. Elevated ESR=47, CRP=9.01. Now s/p left index finger amputation to PIP joint by Dr. Rivera on 04/05. Noted to have ascending tenosynovitis as well Wound culture growing Staph and Strep species, final ID and sens pending No fevers, doing well -Continue antibiotic coverage with Vancomycin and Ceftriaxone -f/u final wound cultures and hopefully can have po abx on discharge -daily dry, sterile dressing changes -f/u with Ortho in clinic in 10-14 days (2) Indigestion: Plan: Patient reports indigestion -Pepcid 40mg po daily -Maalox PRN (3) Methamphetamine abuse: Plan: counseled on cessation (4) Prediabetes: Plan: HgbA1C here is elevated at 6.0% no need for treatment with medication at this time needs PCP follow up, dietary changes Plan Dispo-continued stay, hopeful for dc to home tomorrow if cultures finalized Admission and Anticipated Discharge Date Admission Date: April 05, 2023 Subjective Pt reports feeling well. No CP, SOB, nausea. He is eating and drinking. I discussed his care with Ortho Physical Exam Constitutional: WD/WN, vitals as above Neck: trachea midline, no thyromegaly Respiratory: normal respiratory effort, lungs clear to auscultation Cardiovascular: RRR, no murmur, no edema Gastrointestinal (Abdomen): normal bowel sounds, soft, nontender, no hepatosplenomegaly Musculoskeletal: Extremities: + extremities abnormal to inspection (left index finger in bulky dressing c/d/i) Skin: no rashes, warm and dry Neurologic: moves all extremities and awake; no focal motor deficits Psychiatric: A+Ox3, euthymic affect Lymphatic: no lymphedema Results & Data Results & Data Vital Signs (Past 12 Hours) Vital Signs Temp Pulse Resp BP Pulse Ox O2 Del Method 04/06/23 15:55 36.5 C 61 16 106/69 98 Room Air 04/06/23 07:41 36.4 C L 63 18 132/90 98 Room Air Laboratory Results CBC, BMP, HgbA1C reviewed Wound cx reviewed PG Care Time/CCT Total # of Minutes Spent Total Time Spent with Patient: Total time spent is greater than 50% in coordination of care (as documented) at patient's floor/unit and/or counseling patient: Coding Level of Care Code 99101 SUB INP/OBS CARE 235MIN Diagnoses Finger osteomyelitis, left M86.9 Indigestion K30 Methamphetamine abuse F15.10 Prediabetes R73.03
--- NOTE | 2023-04-06 18:05 | Electrocardiogram Report ---
Test Reason : Blood Pressure : / mmHG Vent. Rate : 064 BPM Atrial Rate : 064 BPM P-R Int : 174 ms QRS Dur : 098 ms QT Int : 422 ms P-R-T Axes : 076 -02 039 degrees QTc Int : 435 ms Sinus rhythm with Premature atrial complexes Otherwise normal ECG No previous ECGs available Confirmed by Fredo Ignacio ([id number]) on 04/06/2023 6:04:57 PM Referred By: REFERRED SELF Confirmed By:Fredo Ignacio
[2023-04-07] MEDS: VANCOMYCIN HCL 1,000 MG in SODIUM CHLORIDE 0.9% 250 ML IV SCH (01:49)
[2023-04-07] MEDS: cefTRIAXone SODIUM 2,000 MG in DEXTROSE 5 % MINI-B 50 ML IV SCH (04:34)
[2023-04-07] MEDS: FAMOTIDINE 40 MG TABLET PO SCH (08:13)
[2023-04-07] MEDS: ACETAMINOPHEN 325 MG TAB PO SCH (08:13)
[2023-04-07] MEDS: DOCUSATE SODIUM/SENNA 50/8.6MG TAB PO SCH (08:14)
[2023-04-07 10:40] LABS: Basophils # (auto) 0.04 K/uL (0.00-0.20); Basophils % (auto) 0.5 %; Eosinophils # (auto) 0.07 K/uL (0.00-0.50); Eosinophils % (auto) 0.9 %; Hematocrit (blood only) 43.5 % (42.0-52.0); Hemoglobin 14.4 g/dl (14.0-18.0); Immature Granulocytes # (auto) 0.02 K/uL (0.01-0.20); Immature Granulocytes % (auto) 0.3 %; Lymphocytes # (auto) 1.54 K/uL (1.20-3.40); Lymphocytes % (auto) 20.1 %; Mean Corpuscular Hgb Conc 33.1 g/dL (32.0-36.0); Mean Corpuscular Volume 90.6 fL (80.0-100.0); Mean Platelet Volume 8.6 fL (9.4-12.4); Monocytes # (auto) 0.48 K/uL (0.11-0.59); Monocytes % (auto) 6.3 %; Neutrophils # (auto) 5.51 K/uL (1.40-6.50); Neutrophils % (auto) 71.9 %; Platelet Count 395 K/uL (130-400); RDW Standard Deviation 43.7 fL (36.4-46.3); White Blood Count 7.66 K/ul (4.8-10.8)
--- NOTE | 2023-04-07 10:48 | Discharge Summary ---
Discharge Summary Date of Service April 07, 2023 Notes For Next Care Provider Medication Changes From Visit Augmentin 875/125mg po bid x 7 days Doxycycline 100mg po bid x 7 days Pepcid 40mg po daily Tylenol 650mg po qid prn pain Admission HPI Per Admitting Provider Juventino Faust is a 58yo male presenting with infection of left index finger. Patient was splitting wood 2 weeks ago and smashed his finger when he was loading up the wood onto a truck. He also got some small thorns in his hand as well. After the initial injury, his nail turned black and fell off. He has had progressive redness, swelling and pain of the left index finger and hand over the last two weeks. Three days ago patient opened the swelling with a razor blade and reported a copious amount of pus that came out. He was seen at [place] [facility] and administered a tetanus shot and instructed to come to [facility]. He denies chest pain, cough, SOB. He reports a low grade subjective fever last night. Also with indigestion tonight. Otherwise, no complaints. In the ER he is afebrile, HD stable. Wound was explored by an ER staff with a sterile q-tip. Probed to exposed bone. Copious amounts of pus expressed and sent for culture. ER Course: Famotidine Vancomycin Ceftriaxone NSS Principal Dx & Hospital Course #1 = Principal Diagnosis (1) Finger osteomyelitis, left: 58yo male s/p injury of left index finger 2 weeks ago with progressive swelling and purulent drainage. With osteomyelitis. Elevated ESR=47, CRP=9.01. Now s/p left index finger amputation to PIP joint by Dr. Rivera on 04/05. Noted to have ascending tenosynovitis as well Wound culture growing Staph species and Group C Strep species, final ID and sens pending on Staph at time of discharge No fevers, doing well, anxious to leave hospital -received antibiotic coverage with Vancomycin and Ceftriaxone and will convert to Augmentin to cover for Strep/Anaerobes and doxy for Staph in case of MRSA as sensitivities not finalized at time of discharge -f/u final wound cultures after discharge by PCP -daily dry, sterile dressing changes at home -f/u with Ortho in clinic in 10-14 days (2) Indigestion: Patient reports indigestion -Pepcid 40mg po daily was started (3) Methamphetamine abuse: counseled on cessation (4) Prediabetes: HgbA1C here is elevated at 6.0% no need for treatment with medication at this time needs PCP follow up, dietary changes Plan Dispo-dc to home Discussed care with Ortho Discharge Exam Constitutional WD/WN, vitals as above Neck trachea midline, no thyromegaly Respiratory normal respiratory effort, lungs clear to auscultation Cardiovascular RRR, no murmur, no edema Gastrointestinal (Abdomen) normal bowel sounds, soft, nontender, no hepatosplenomegaly Musculoskeletal Extremities: + extremities abnormal to inspection (left index finger in bulky dressing c/d/i) Skin no rashes, warm and dry Neurologic moves all extremities and awake; no focal motor deficits Psychiatric A+Ox3, euthymic affect Lymphatic no lymphedema Updated Medication List Medication Instructions Recorded Confirmed Type acetaminophen 325 mg tablet 650 mg (2 x 325 mg) PO QID PRN 04/07/23 Rx pain #30 tabs amoxicillin 875 mg-potassium 1 tab PO BID #14 tabs 04/07/23 Rx clavulanate 125 mg tablet doxycycline hyclate 100 mg tablet 100 mg PO BID 7 days #14 tabs 04/07/23 Rx famotidine 40 mg tablet 40 mg PO QAM #30 tabs 04/07/23 Rx Hospital Stay Data Consultations 04/05/23 05:50 Consult Orthopedic Surgery Routine 04/05/23 05:58 ED Decision to Admit Stat 04/06/23 16:31 Consult [facility] rigger supervisor Routine Procedures Performed Operation Date: 04/05/23 11:30 Actual Procedures p Left Index Finger Amputation; Irrigation and Debridement(Left) - Trav Rivera MD Pending Results Patient Have Any Pending Studies at Discharge: Yes (Final wound culture results) Discharge Instructions Given to Patient (Per Discharging Provider) Please continue on the two different antibiotics for 7 more days--> Augmentin and doxycycline both twice a day. Continue dry sterile dressing changes once a day. Follow up with the Orthopedic Surgery PA in 10-14 days. Total Time Total Time Spent Total Time Spent (In Minutes): 40 min Coding Level of Care Code 22063 INP/OBS DISCH >30 MIN Diagnoses Finger osteomyelitis, left M86.9 Indigestion K30 Methamphetamine abuse F15.10 Prediabetes R73.03
[2023-04-07 11:00] LABS: BUN Creatinine Ratio 14.1 (10-20); Creatinine Clr Calc Pharmacy 80.8 ml/min; Est GFR (African American) 105.1 ml/min; Est GFR (Non-African American) 90.7 ml/min; Potassium 4.1 mmol/L (3.5-5.1)
[2023-04-10 11:54] LABS: Amphetamine Urine, Confirm 1620 ng/mL (<250); MDA negative; MDEA negative; MDMA (Ecstasy) Urine, Confirm negative; Methamphetamine, Ur Confirm >15000 ng/mL (<250)
== END 2023-04-07 12:00 | disposition home or self-care (01) | DRG 514 ==
LOC: ED 03:54 → 3W 06:41 → SUATTDRO 06:41 → 3W 09:58